=== PATIENT | male | born 1975 | race Caucasian/White ===

== ENCOUNTER 2018-06-28 07:12 | Day surgery (SDC) | payer OTHER ==
[~2018-06-28 07:12] MED LIST: EPINEPHrine 1 MG INJ; ONDANSETRON 4 MG INJ; ROPIVACAINE 0.5 % 30 ML VIAL; SEVOFLURANE 15 MIN
[2018-06-28] MEDS ORDERED: METOCLOPRAMIDE 10 MG INJ (09:13)
[2018-06-28] MEDS ORDERED: FENTAnyl 50 MCG/ML VIAL ×2 (09:13→12:51)
[2018-06-28] MEDS ORDERED: MIDAZOLAM 1 MG/ML 2 ML INJ (09:14)
[2018-06-28] MEDS ORDERED: CEFAZOLIN 1 GM INJ (09:16)
[2018-06-28] MEDS ORDERED: LIDOCAINE 2% (SDV) 5 ML INJ (09:16)
[2018-06-28] MEDS ORDERED: PROPOFOL 20 ML (09:16)
[2018-06-28] MEDS ORDERED: ROPIVACAINE 0.5 % 30 ML VIAL (10:20)
[2018-06-28] MEDS ORDERED: morphine 4 MG/ML VIAL IV (12:30)
[2018-06-28] MEDS ORDERED: HYDROCODONE/APAP (5/325) TAB PO (12:30)
[2018-06-28] MEDS ORDERED: HYDROmorphONE 1 MG/5 ML IV SYRINGE IV ×2 (13:00)
[2018-06-28] MEDS ORDERED: LEVALBUTEROL (NEB) 1.25 MG/0.5 ML AMP HHN (13:00)
[2018-06-28] MEDS ORDERED: hydrALAzine 20 MG INJ IV (13:00)
[2018-06-28] MEDS ORDERED: DIPHENHYDRAMINE 50 MG INJ IV (13:00)
[2018-06-28] MEDS ORDERED: FENTAnyl 50 MCG/ML VIAL IV (13:00)
[2018-06-28] MEDS ORDERED: MEPERIDINE 25 MG INJ IV (13:00)
[2018-06-28] MEDS ORDERED: ONDANSETRON 4 MG INJ IV (13:00)
[2018-06-28] MEDS ORDERED: IPRATROPIUM (NEB) 0.5 MG/2.5 ML AMP HHN (13:00)
[2018-06-28] MEDS ORDERED: KETOROLAC 30 MG INJ IV (13:00)
[2018-06-28] MEDS ORDERED: LABETALOL HCL 20MG INJ IV (13:00)
[2018-06-28] MEDS: FENTAnyl 50 MCG/ML VIAL IV (13:05)
[2018-06-28] MEDS: HYDROmorphONE 1 MG/5 ML IV SYRINGE IV (13:06)
== END 2018-06-28 14:41 | disposition home or self-care (01) ==
LOC: SDS 07:12
DX: S83.282A Other tear of lateral meniscus, current injury, left knee, initial encounter (principal); X58.XXXA Exposure to other specified factors, initial encounter; Y93.89 Activity, other specified; Y92.89 Other specified places as the place of occurrence of the external cause; Y99.8 Other external cause status
CPT/HCPCS: 29881; 88304